=== PATIENT | female | born 1995 | race Caucasian/White ===

== ENCOUNTER 2021-01-26 22:11 | Emergency (ER) | payer SELFPAY ==
[~2021-01-26] VITALS: Ht 162.6 cm; Wt 83.0 kg
[2021-01-26 22:20] VITALS: Ht 162.6 cm; Wt 83.0 kg
[2021-01-26] MEDS ORDERED: AUGMENTIN 875-1 EACH PO (23:04)
[2021-01-26 23:17] VITALS: BP 104/55
== END 2021-01-26 23:17 | disposition home or self-care (01) ==
LOC: ED 22:11
DX: N61.0 Mastitis without abscess (principal)